=== PATIENT | female | born 1995 | race Caucasian/White ===

== ENCOUNTER 2022-08-30 08:30 | Emergency (ER) | payer OTHER, SELFPAY ==
[2022-08-30 08:33] VITALS: BP 151/87; PULSE 93; RESP 18; TEMP 36.5; O2SAT 100; BMI 46.9
--- NOTE | 2022-08-30 08:47 | XRR_ITS ---
PROCEDURE INFORMATION: Exam: XR Chest Exam date and time: 08/30/2022 8:58 AM Age: 27 years old Clinical indication: Cough and dyspnea; Patient HX: Cough, dyspnea, sinus stuff since June, chest pain for the last 2 days; Additional info: Dyspnea/cough TECHNIQUE: Imaging protocol: Radiologic exam of the chest. Views: 1 view. COMPARISON: No relevant prior studies available. FINDINGS: Lungs: Unremarkable. No consolidation. Pleural spaces: Unremarkable. No pleural effusion. No pneumothorax. Heart/Mediastinum: Unremarkable. No cardiomegaly. Bones/joints: Unremarkable. XR/XR chest 1V portable [id number] IMPRESSION: No acute findings.
--- NOTE | 2022-08-30 08:47 | W.ED.URI ---
HPI - URI/Sore Throat General: Chief Complaint: Upper Respiratory Infection Stated Complaint: SOB Time Seen by Provider: 08/30/22 08:36 Source: patient Mode of arrival: ambulatory History of Present Illness: 27-year-old female presents emergency room with complaint of cough with mild sputum production weakness shaky feeling she has had this over the last 2 days which she has been congested for the last couple of weeks. She was seen in couple weeks ago at [facility] given Augmentin and prednisone. She is ambulatory with no respiratory distress. Voice is a forced whisper without stridor. She denies any hemoptysis. MD elicited complaint: cough Onset (ago): week(s) Consistency: constant Severity: mild Able to tolerate fluids by mouth: Yes Exacerbating factors: nothing Relieving factors: nothing Associated symptoms: Reports chest pain, congestion, cough and nasal congestion; Deny abdominal pain, change in voice, chills, diarrhea, epistaxis, ear or mastoid pain, fever(s), headache(s), myalgias, nausea, rash, rhinorrhea, short of breath, sinus pain, stiffness, sore throat or vomiting Treatments prior to arrival: none Review of Systems Const: Denies: fever(s), chills, fatigue or malaise ENMT: Reports: hoarseness and nasal congestion; Denies: throat pain, ear or mastoid pain, epistaxis or sinus pain Card: Reports: chest pain; Denies: palpitations, irregular heart rhythm, edema or swelling of feet/ankles Resp: Denies: dyspnea, productive cough or non-productive cough GI: Denies: abdominal pain, nausea, vomiting or diarrhea : Denies: flank pain, difficulty voiding, dysuria, urinary frequency or urinary urgency Skin/Breast: Denies: rash or pruritus Neuro: Denies: headache(s) PFSH ED PFSH: Medical History (Updated 08/30/22 @ 14:20 by Parker Moreno DO) No significant past medical history Surgical History (Updated 08/30/22 @ 14:20 by Parker Moreno DO) No pertinent past surgical history Social History (Updated 08/30/22 @ 14:20 by Parker Moreno DO) Smoking and tobacco status: never smoked Alcohol intake: never Physical Exam Const: COMMON NORMALS: no acute distress GENERAL APPEARANCE: cooperative and comfortable ORIENTATION/CONSCIOUSNESS: Yes awake, Yes oriented to person, Yes oriented to place and Yes oriented to time HENMT: COMMON NORMALS: normocephalic, atraumatic, hearing grossly normal bilaterally, external ears normal, EAC's normal, TM's normal bilaterally, Normal nasal mucous membranes and turbinates present, moist oral mucous membranes and oropharynx normal HEAD & SCALP: normocephalic and atraumatic NOSE: Normal nasal mucous membranes and turbinates present EXTERNAL EAR: Yes external ears normal EXTERNAL AUDITORY CANAL: EAC's normal TYMPANIC MEMBRANE: TM's normal bilaterally Eye: COMMON NORMALS: Equal, round and reactive pupils present, EOMs intact bilaterally, conjunctivae normal and no scleral icterus CONJUNCTIVA: Yes conjunctivae normal PUPIL: Yes Equal, round and reactive pupils present Neck/C-Spine: COMMON NORMALS: full ROM, no lymphadenopathy, supple and no JVD Lymph: LYMPHATIC: no lymphadenopathy noted and no lymphedema noted Resp: COMMON NORMALS: normal respiratory effort, No retractions, No use of accessory muscles and clear to auscultation bilaterally AUSCULTATION: clear to auscultation bilaterally Cardio: COMMON NORMALS: no JVD, regular rate, regular rhythm and No murmurs present (Cardio) RATE: regular rate RHYTHM: regular rhythm GI: COMMON NORMALS: Soft to palpation and No hepatosplenomegaly present AUSCULTATION: Yes normoactive bowel sounds PALPATION: Yes Soft to palpation, No Tenderness to palpation present (GI), No Guarding due to palpation present (GI) and Yes No hepatosplenomegaly present Extremity: COMMON NORMALS: normal to inspection, capillary refill normal, no clubbing, cyanosis or edema, no calf tenderness and no pedal edema Neuro: SENSORIUM/ORIENTATION: Yes oriented to person, Yes oriented to place and Yes oriented to time Skin: COMMON NORMALS: no rashes or lesions noted GENERAL SKIN EXAM: no rashes or lesions noted Course Vital Signs: Vital signs: Vital Signs Temperature 97.7 F 08/30/22 08:33 Pulse Rate 93 08/30/22 08:33 Respiratory Rate 18 08/30/22 08:33 Blood Pressure 151/87 08/30/22 08:33 Pulse Oximetry 100 08/30/22 08:33 Oxygen Delivery Me thod 08/30/22 08:33 MDM - URI/Sore Throat Medical Decision Making Exam labs and EKG are unremarkable. I will take another course of antibiotics. Could be helpful she seems to have more laryngitis than anything. Lungs actually sound fairly clear. She has a forced whisper voice. We will put her on a course of oral steroids as well as a nasal steroid to keep her appointment for evaluation with Dr. Barron at ENT return if is further problems. Lab Data 08/30/22 09:18 08/30/22 09:18 Radiology Impressions Chest X-Ray 08/30/22 08:47 IMPRESSION: No acute findings. Laboratory Results WBC 12.6 10^3/uL (4.0-10.0) H 08/30/22 09:18 RBC 4.76 10^6/uL (4.1-5.3) 08/30/22 09:18 Hgb 13.7 g/dL (11.5-15.3) 08/30/22 09:18 Hct 41.2 % (37.0-47.0) 08/30/22 09:18 MCV 86.6 fl (81-99) 08/30/22 09:18 MCH 28.8 pg (28.0-34.0) 08/30/22 09:18 MCHC 33.3 g/dL (30.0-36.0) 08/30/22 09:18 RDW 12.2 % (12.1-15.1) 08/30/22 09:18 Plt Count 325 10^3/cmm (130-400) 08/30/22 09:18 MPV 9.0 fL (7.4-10.4) 08/30/22 09:18 Neut % (Auto) 81.6 % 08/30/22 09:18 Lymph % (Auto) 8.8 % 08/30/22 09:18 [place] % (Auto) 4.7 % 08/30/22 09:18 Eos % (Auto) 3.8 % 08/30/22 09:18 Baso % (Auto) 0.6 % 08/30/22 09:18 Neut # (Auto) 10.29 10^3/uL (1.8-7.7) H 08/30/22 09:18 Lymph # (Auto) 1.1 10^3/uL (0.8-4.8) 08/30/22 09:18 [place] # (Auto) 0.6 10^3/uL (0.2-0.9) 08/30/22 09:18 Eos # (Auto) 0.5 10^3/uL (0.0-0.8) 08/30/22 09:18 Baso # (Auto) 0.1 10^3/uL (0.0-0.1) 08/30/22 09:18 Nucleated RBC % (auto) 0 % 08/30/22 09:18 Nucleated RBCs # 0.0 /100WBC 08/30/22 09:18 Sodium 138 mmol/L (136-145) 08/30/22 09:18 Potassium 3.9 mmol/L (3.5-5.1) 08/30/22 09:18 Chloride 103 mmol/L (98-107) 08/30/22 09:18 Carbon Dioxide 23 mmol/L (22-29) 08/30/22 09:18 Anion Gap 15.9 (5-19) 08/30/22 09:18 BUN 13 mg/dL (6-20) 08/30/22 09:18 Creatinine 0.7 mg/dL (0.5-0.9) 08/30/22 09:18 GFR Calculation 99.6 mL/min (90-130) 08/30/22 09:18 Glucose 103 mg/dL (65-115) 08/30/22 09:18 Calculated Osmolality 286 mOsm/kg (285-295) 08/30/22 09:18 Calcium 8.9 mg/dL (8.5-10.5) 08/30/22 09:18 Total Bilirubin 0.6 mg/dL (0.15-1.2) 08/30/22 09:18 AST 10 U/L (0-32) 08/30/22 09:18 ALT 14 U/L (0-33) 08/30/22 09:18 Alkaline Phosphatase 80 U/L (35-105) 08/30/22 09:18 Total Protein 7.0 g/dL (6.6-8.7) 08/30/22 09:18 Albumin 4.1 g/dL (3.5-5.2) 08/30/22 09:18 Globulin 2.9 g/dL (1.3-4.6) 08/30/22 09:18 Discharge Plan Discharge Patient Disposition: Home Clinical Impression: Laryngitis, Chronic rhinitis Condition: Stable Prescriptions: New Flonase Allergy Relief 50 mcg/actuation spray,suspension 2 spray intranasal DAILY Qty: 16 0RF Rx Instructions: administer into each nostril -2 sprays each nostril twice a day for 10 days then decrease to once a day prednisone 20 mg tablet 20 mg PO TID Qty: 15 0RF Rx Instructions: 1 p.o. 3 times daily x3 days, 1 p.o. twice daily x2 days, 1 p.o. daily x2 days Discharge Orders: Discharge ED (Routine); Ordered 08/30/22 Ordered By: Parker Moreno Discharge Diet: Usual diet Discharge Activity: Increase activity as tolerated Patient Instructions: Opioid Safety, Pain Management Activity Restrictions/Additional Instructions: You were seen today for pharyngitis and congestion. Given the number of courses of antibiotics that you have already been through would not recommend repeating any antibiotics. I do think is worthwhile for you to start on a nasal steroid spray and a oral burst and taper of steroids. Keep your scheduled appointment with Dr. Barron. Stand Alone Forms: Work/School Release Coding Level of Care Code ED [employer] In[employer] for [employer]
[2022-08-30 09:28] LABS: Basophils # 0.1 10^3/uL (0.0-0.1); Basophils % 0.6 %; Eosinophils # 0.5 10^3/uL (0.0-0.8); Eosinophils % 3.8 %; Hematocrit 41.2 % (37.0-47.0); Hemoglobin 13.7 g/dL (11.5-15.3); Lymphocytes # 1.1 10^3/uL (0.8-4.8); Lymphocytes % 8.8 %; Mean Corpuscular HGB Conc 33.3 g/dL (30.0-36.0); Mean Corpuscular Hemoglobin 28.8 pg (28.0-34.0); Mean Corpuscular Volume 86.6 fl (81-99); Monocytes # 0.6 10^3/uL (0.2-0.9); Monocytes % 4.7 %; Neutrophils # 10.29 10^3/uL (1.8-7.7); Neutrophils % 81.6 %; Nucleated Red Blood Cells % 0 %; Platelet Count 325 10^3/cmm (130-400); Red Blood Count 4.76 10^6/uL (4.1-5.3); Red Cell Distribution Width 12.2 % (12.1-15.1); White Blood Count 12.6 10^3/uL (4.0-10.0)
[2022-08-30 09:49] LABS: Alanine Aminotransferase 14 U/L (0-33); Albumin Level 4.1 g/dL (3.5-5.2); Alkaline Phosphatase 80 U/L (35-105); Anion Gap 15.9 (5-19); Aspartate Amino Transferase 10 U/L (0-32); Blood Urea Nitrogen 13 mg/dL (6-20); Calcium 8.9 mg/dL (8.5-10.5); Carbon Dioxide 23 mmol/L (22-29); Chloride 103 mmol/L (98-107); Globulin 2.9 g/dL (1.3-4.6); Glomerular Filtration Rate 99.6 mL/min (90-130); Glucose 103 mg/dL (65-115); Osmolality Calculated 286 mOsm/kg (285-295); Potassium 3.9 mmol/L (3.5-5.1); Sodium 138 mmol/L (136-145); Total Bilirubin 0.6 mg/dL (0.15-1.2)
== END 2022-08-30 10:10 | disposition home or self-care (01) ==
PROVIDERS: Emergency Provider Family Medicine
DX: J31.0 Chronic rhinitis (principal); J04.0 Acute laryngitis
CPT/HCPCS: 71045; 80053; 85025; 99283